=== PATIENT | female | born 1930 | race Caucasian/White ===

== ENCOUNTER → 2016-11-06 | Outpatient (CLI) | payer MEDICARE, BC ==
[~2016-11-06] MED LIST: ACCUPRIL PO; ACCURETIC 20-251 TAB; ACCURETIC 20-251 TAB PO; AMIODARONE HCL100 MG PO; AMIODARONE PO; AMLODIPINE BES2.5 MG PO; AMLODIPINE BESYL5 MG PO; ARTHROTEC 751 TAB.EC; ASPIRIN PO; ASPIRIN81 M2 PO; ASPIRIN81 MG PO; AZOR 5-40 MG1 UDTAB PO; AZOR 5/40 MG TA1 TAB PO; BACTRIM DS TABL1 TA1 PO; BACTROBAN22 GM TP; BAYER ASPIRIN325 M1 PO; BENEFIBER1 EAC1; BUSPAR15 M2 PO; BUSPAR15 MG PO; CALCIUM 500 +1 EAC5 PO; CHEWABLE ASPIRI81 MG PO; COUMADIN2.5 MG PO; COZAAR100 MG PO; DARVOCET-N 1001 TAB; DOC-Q-LACE100 MG PO; EQUATE; FUROSEMIDE40 MG PO; HYDRALAZINE HCL50 MG PO; HYDROCHLOROTH12.5 MG PO; ISOSORBIDE DINI10 MG PO; KLONOPIN1 MG; LASIX PO; LASIX20 MG PO; LISINOPRIL20 MG; LISINOPRIL20 MG PO; LOMOTIL 2.5-0.1 EACH; LORTAB 10/500 T1 TAB PO; METOPROLOL TAR25 MG PO; MULTI-VITAMIN1 TAB; MULTIVITAMIN; MULTIVITAMIN1 UDCAP PO; NEURONTIN100 MG PO; NITROGLYGERIN0.4 MG SL; NITROQUICK0.4 MG SL; NORVASC PO; NORVASC2.5 MG PO; OYSTER CALCIUM500 MG; PANTOPRAZOLE SO40 MG PO; PATIENT'S PHARMACY; PERCOCET 5/321 UDTAB PO; PLAVIX PO; PROLIA SUBQ; PROTONIX PO; QUINARETIC; SIMVASTATIN10 MG PO; SIMVASTATIN20 MG PO; TOPROL XL50 MG PO; TRICOR PO; TYLENOL; VICODIN 5/500 T1 TAB PO; VIT E; VITAMIN D 4001 UDTAB; VITAMIN D1000 UNIT PO; VITAMIN D3400 UNI2 PO; VITAMIN D3400 UNIT PO; VITAMIN D400 UNI1 PO; VITAMIN E; XARELTO15 MG PO; XARELTO20 MG PO; ZOCOR-BORROW, D10 MG PO; ZOCOR20 MG PO; ZOLOFT PO; [UNRECOGNIZED DRUG - OTHER]
[2016-11-06 09:40] LABS: INR 2.5; PROTHROMBIN TIME (PATIENT) 28.1 SECONDS (9.5-12.4)
== END | disposition home or self-care (01) ==
LOC: SLABONLY 08:13
PROVIDERS: Internal Medicine Cardiovascular Disease
DX: I48.91 Unspecified atrial fibrillation (principal)
CPT/HCPCS: 36415; 85610

== ENCOUNTER → 2016-12-05 | Outpatient (CLI) | payer MEDICARE, BC ==
[2016-12-05 10:59] LABS: INR 1.7; PROTHROMBIN TIME (PATIENT) 19.2 SECONDS (9.5-12.4)
== END | disposition home or self-care (01) ==
LOC: SLAB 08:42
PROVIDERS: Internal Medicine Cardiovascular Disease
DX: I48.91 Unspecified atrial fibrillation (principal)
CPT/HCPCS: 36415; 85610

== ENCOUNTER → 2016-12-08 | Day surgery (SDC) | payer MEDICARE, BC ==
--- NOTE | ~2016-12-08 | OR ---
Unit #: [id number] #: [id number] Patient: MEGAN BAILEY [id number] [address] [place], [place] [address] [id number] O MR#: [id number] NAME: MEGAN BAILEY ROOM: Date of Procedure: 12/08/2016 Admission Date: 12/08/2016 Surgeon: Domingo Maciel Jr., M.D. : 1930 Attending Physician: Domingo Maciel Jr., M.D. Primary Care Physician: Amisha Lombardo M.D. OPERATIVE REPORT JOB NOTE: CC: DR. LOMBARDO INDICATIONS FOR PROCEDURE The patient is an 86-year-old white female, who recently presented to the office complaining of loose stools with intermittent diarrhea, some weight loss, and chronic nausea with mid epigastric abdominal pain. It was felt that she needed both upper and lower endoscopy to rule out occult ulcer disease, possible esophagitis, possible colitis. She is brought in this time after prep at home for these procedures. She understands the procedure including the risks, including that of bleeding perforation, and consents. PREOPERATIVE DIAGNOSES Possible occult ulcer disease, possible esophagitis, possible colitis. POSTOPERATIVE DIAGNOSES On upper endoscopy, the patient was noted to have mild to moderate erosive gastritis especially in the area of the antrum. There was some tiny superficial ulcerations and mild duodenitis of the bulb of the duodenum and on colonoscopy to the distal ileum, she was noted to have diverticulosis of left colon, but no other specific abnormalities except for some tortuosity, which was noted on a previous scope. ANESTHESIA MAC anesthesia. PROCEDURES PERFORMED Flexible fiberoptic esophagogastroduodenoscopy with antral biopsy for Helicobacter pylori and flexible colonoscopy to the distal ileum. DESCRIPTION OF PROCEDURE The patient was positioned in Pozo position with left side down. After being given MAC anesthesia, the Olympus XQ scope was passed through the proximal esophagus. Entire esophagus was examined. There was no evidence of any esophagitis and no evidence of any stenosis. There was a small hiatal hernia present. The scope was passed through the GE junction and the cardia, and down to the fundic and antral region of the stomach and retroflexed back up to the area of the cardia, where there was a small hiatal hernia present. The stomach distended well without evidence of rigidity. Proximal two-thirds of the stomach appeared normal. In the area of the antrum, there were multiple small superficial ulcerations with yril-ap-yqihbqlr gastritis. A biopsy was taken from the antrum for H. Unit #: [id number] #: [id number] Patient: MEGAN BAILEY pylori without significant bleeding. The scope was advanced through the pylorus and the duodenal bulb, where there was some mild duodenitis. No evidence of any ulcers. The scope was advanced down to the second portion of the duodenum, which appeared normal. The scope was slowly removed. The patient repositioned for colonoscopy. A digital rectal examination was performed, which revealed no palpable mass or tenderness. No blood or stool in the rectal ampulla. The Olympus colonoscope was advanced through the anal canal up the rectum and retroflexed down to the area of the anorectal region. There were some small internal hemorrhoids felt to be of no major consequence with no evidence of any bleeding. The scope was then straightened and advanced up in the rectosigmoid, in the sigmoid and descending colon areas, where there was some tortuosity with diverticulosis. The scope was then advanced around the splenic flexure and the transverse colon, around the hepatic flexure and ascending colon, down in the area of the cecum. The light from the tip of the scope could be seen transilluminating through right lower quadrant abdominal wall area. The scope was advanced up the distal ileum approximately 10 to 12 inches. There was no evidence of any ileitis or inflammatory bowel disease. The scope was slowly removed. There were no tumors, no polyps, no cancer, no evidence of AVMs, no colitis, and no evidence of any acute diverticulitis. The caliber of the colon appeared normal throughout. The scope was removed. The patient tolerated the procedure well. The patient was discharged in satisfactory condition. Dictated by... Domingo Maciel Jr., Tam BECKHAM/price TD: 12/08/2016 23:18 JOB #: [id number] OPERATIVE REPORT Page 1 of 1 X Domingo Maciel MD X PROCEDURE OPERATIVE NOTE
== END | disposition home or self-care (01) ==
LOC: COPS 11:34
DX: K29.00 Acute gastritis without bleeding (principal); K29.80 Duodenitis without bleeding; K26.9 Duodenal ulcer, unspecified as acute or chronic, without hemorrhage or perforation; K57.30 Diverticulosis of large intestine without perforation or abscess without bleeding; K44.9 Diaphragmatic hernia without obstruction or gangrene; K64.8 Other hemorrhoids; I10 Essential (primary) hypertension; E78.5 Hyperlipidemia, unspecified; I25.10 Atherosclerotic heart disease of native coronary artery without angina pectoris; I48.91 Unspecified atrial fibrillation; Z85.3 Personal history of malignant neoplasm of breast; Z87.442 Personal history of urinary calculi; Z79.01 Long term (current) use of anticoagulants; Z79.82 Long term (current) use of aspirin; Z79.899 Other long term (current) drug therapy; Z90.49 Acquired absence of other specified parts of digestive tract; Z90.710 Acquired absence of both cervix and uterus; Z95.1 Presence of aortocoronary bypass graft
CPT/HCPCS: 87077

== ENCOUNTER → 2016-12-11 | Outpatient (CLI) | payer MEDICARE, BC ==
--- NOTE | ~2016-12-11 | CR63 ---
[facility] A Service of [facility] & [facility] RADIOLOGY TEXT RESULTS PATIENT: MEGAN BAILEY LOCATION: [facility] : 30 UNIT #: [id number] AGE: [address]: OSMAN CORBIN SEX: F ORDER DR: [id number] [facility] [address] [place], [place] [address] [id number] O MR#: [id number] Acc #: [id number] NAME: MEGAN BAILEY : 1930 SEX: F STUDY DATE/TIME: 12/11/2016 10:00 UNIT: [facility] ROOM: STUDY DESCRIPTION: CR Chest 2 View Attending Physician: Maxine Alcantara Referring Physician: Maxine Alcantara Ordering Physician: Maxine Alcantara Primary Care Physician: Amisha Jerry M.D. MEDICAL IMAGING REPORT This report is preliminary unless electronic signature is present EXAM PA and lateral chest radiograph 12/11/2016 INDICATIONS Right-sided chest pain for a couple of weeks. Patient has a history of right breast cancer status post mastectomy. FINDINGS Cardiomegaly is identified without any evidence of vascular congestion. Patient is status post right mastectomy and axillary dissection. No pneumothorax or pleural effusion is seen. There are background changes of COPD. 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 Patient has a stable compression deformity at T12 when compared to an exam from December 23, 2015. Old right-sided rib fractures are noted as well. IMPRESSION 1. Cardiomegaly without evidence of vascular congestion. 2. No acute infiltrates are identified. Patient does have background changes of COPD. 3. Changes of prior right mastectomy and axillary dissection. 4. Stable compression deformity at T12. Dictated by... Tavia Fregoso M.D. THIS IS AN ELECTRONICALLY VERIFIED REPORT Tavia Fregoso M.D. at 12/13/2016 7:55 AM RUSSELL/malik TD: 12/11/2016 15:16 JOB #: [id number] [facility] A Service of [facility] & [facility] RADIOLOGY TEXT RESULTS PATIENT: MEGAN BAILEY LOCATION: [facility] : 30 UNIT #: [id number] AGE: [address]: OSMAN CORBIN SEX: F ORDER DR: MEDICAL IMAGING REPORT Page 1 of 1 COPY
== END | disposition home or self-care (01) ==
LOC: CLAB 09:46
DX: R07.9 Chest pain, unspecified (principal); I51.7 Cardiomegaly; M43.9 Deforming dorsopathy, unspecified; Z90.11 Acquired absence of right breast and nipple; Z85.3 Personal history of malignant neoplasm of breast
CPT/HCPCS: 71020

== ENCOUNTER → 2016-12-26 | Outpatient (CLI) | payer MEDICARE, BC ==
[2016-12-26 11:23] LABS: BUN/CREATININE RATIO 23.57; CALCIUM SERUM 9.7 mg/dL (8.4-10.2); CREATININE SERUM 1.4 mg/dL (0.6-1.4); GLOM FILT RATE Estimated 33.9 mL/min (>60); POTASSIUM 3.3 mmol/L (3.5-5.1)
== END | disposition home or self-care (01) ==
LOC: SLAB 10:48
PROVIDERS: Internal Medicine Endocrinology, Diabetes & Metabolism
DX: E21.0 Primary hyperparathyroidism (principal)
CPT/HCPCS: 36415; 80048

== ENCOUNTER → 2017-01-05 | Outpatient (CLI) | payer MEDICARE, BC ==
[2017-01-05 13:40] LABS: INR 4.9
== END | disposition home or self-care (01) ==
LOC: SLABONLY 12:37
PROVIDERS: Internal Medicine Cardiovascular Disease
DX: I48.91 Unspecified atrial fibrillation (principal)
CPT/HCPCS: 36415; 85610

== ENCOUNTER → 2017-02-02 | Outpatient (CLI) | payer MEDICARE, BC ==
--- NOTE | ~2017-02-02 | MY27 ---
[facility] A Service of [facility] RADIOLOGY TEXT RESULTS PATIENT: MEGAN BAILEY LOCATION: [facility] : 30 UNIT #: [id number] AGE: [address]: Amisha Jerry MD SEX: F ORDER DR: [id number] [facility] [address] [place], [place] [address] [id number] O MR#: [id number] Acc #: [id number] NAME: MEGAN BAILEY : 1930 SEX: F STUDY DATE/TIME: 02/02/2017 10:46 UNIT: [facility] ROOM: STUDY DESCRIPTION: MY KENNETH SCREEN W/ CAD UNI LT Attending Physician: Amisha Jerry M.D. Referring Physician: Amisha Jerry M.D. Ordering Physician: Amisha Jerry M.D. Primary Care Physician: Amisha Jerry M.D. MEDICAL IMAGING REPORT This report is preliminary unless electronic signature is present EXAM Unilateral left digital screening mammogram, 02/02/2017 HISTORY 86-year-old woman status post right mastectomy age 70. Annual screening. COMPARISON Mammograms date to 11/16/2006 with most recent screening comparison 01/31/2016. FINDINGS Digital imaging of the left breast was completed utilizing screening protocol. Mole markers were placed. Review includes FDA-approved CAD device. Breast parenchyma is predominantly fatty replaced and stable. There is no interval occurring breast mass. There are no suspicious microcalcifications and no architectural deformity. IMPRESSION Negative unilateral left mammogram. Status post right mastectomy. Annual screening recommended. Patients over the age of 40 are entered into a reminder system with target due date for the next mammogram. A result letter will also be sent to the patient. BIRADS: 1 Negative Dictated by... Gene Giron M.D. THIS IS AN ELECTRONICALLY VERIFIED REPORT Gene Giron M.D. at 02/02/2017 3:06 PM NOEMI/shauna [facility] A Service of [facility] RADIOLOGY TEXT RESULTS PATIENT: MEGAN BAILEY LOCATION: [facility] : 30 UNIT #: [id number] AGE: [address]: Amisha Jerry MD SEX: F ORDER DR: TD: 02/02/2017 14:24 JOB #: [id number] MEDICAL IMAGING REPORT Page 1 of 1 COPY
== END | disposition home or self-care (01) ==
LOC: CWCC 10:30
DX: Z12.31 Encounter for screening mammogram for malignant neoplasm of breast (principal); Z90.11 Acquired absence of right breast and nipple
CPT/HCPCS: G0202

== ENCOUNTER → 2017-02-06 | Outpatient (CLI) | payer MEDICARE, BC ==
[2017-02-06 09:34] LABS: INR 2.1; PROTHROMBIN TIME (PATIENT) 24.2 SECONDS (9.5-12.4)
== END | disposition home or self-care (01) ==
LOC: SLABONLY 09:07
PROVIDERS: Internal Medicine Cardiovascular Disease
DX: Z51.81 Encounter for therapeutic drug level monitoring (principal); I48.91 Unspecified atrial fibrillation; Z79.01 Long term (current) use of anticoagulants
CPT/HCPCS: 36415; 85610

== ENCOUNTER → 2017-03-07 | Outpatient (CLI) | payer MEDICARE, BC ==
[2017-03-07 10:38] LABS: INR 2.7; PROTHROMBIN TIME (PATIENT) 30.9 SECONDS (9.5-12.4)
== END | disposition home or self-care (01) ==
LOC: SLAB 08:23
PROVIDERS: Internal Medicine Cardiovascular Disease
DX: I48.91 Unspecified atrial fibrillation (principal)
CPT/HCPCS: 36415; 85610

== ENCOUNTER → 2017-03-27 | Outpatient (CLI) | payer MEDICARE, BC ==
[2017-03-27 11:30] LABS: BUN/CREATININE RATIO 22.85; CALCIUM SERUM 9.9 mg/dL (8.4-10.2); CREATININE SERUM 1.4 mg/dL (0.6-1.4); GLOM FILT RATE Estimated 33.9 mL/min (>60); POTASSIUM 4.2 mmol/L (3.5-5.1)
[2017-03-31 00:41] LABS: CALCIUM (PTHINTACT) 10.4 mg/dL (8.6-10.4)
== END | disposition home or self-care (01) ==
LOC: SLABONLY 10:17
PROVIDERS: Internal Medicine Endocrinology, Diabetes & Metabolism
DX: M81.0 Age-related osteoporosis without current pathological fracture (principal); E21.0 Primary hyperparathyroidism
CPT/HCPCS: 36415; 80048; 82310; 83970

== ENCOUNTER → 2017-04-09 | Outpatient (CLI) | payer MEDICARE, BC ==
[2017-04-09 10:34] LABS: INR 2.6; PROTHROMBIN TIME (PATIENT) 29.2 SECONDS (9.5-12.4)
== END | disposition home or self-care (01) ==
LOC: SLAB 09:26
PROVIDERS: Internal Medicine Cardiovascular Disease
DX: Z51.81 Encounter for therapeutic drug level monitoring (principal); I48.91 Unspecified atrial fibrillation; Z79.01 Long term (current) use of anticoagulants
CPT/HCPCS: 36415; 85610

== ENCOUNTER → 2017-04-20 | Outpatient (CLI) | payer MEDICARE, BC | END | disposition home or self-care (01) | LOC: CSSDAY 09:58 | DX: M81.0 Age-related osteoporosis without current pathological fracture (principal) | CPT/HCPCS: 36415; 82310; 96372; J0897 ==

== ENCOUNTER → 2017-04-25 | Outpatient (CLI) | payer MEDICARE, BC ==
[2017-04-25 11:04] LABS: ALBUMIN SERUM 4.5 g/dL (3.5-5.0); BILIRUBIN,TOTAL 1.2 mg/dL (0.2-2.0); BUN/CREATININE RATIO 23.75; CALCIUM SERUM 9.6 mg/dL (8.4-10.2); CREATININE SERUM 1.6 mg/dL (0.6-1.4); GLOM FILT RATE Estimated 28.9 mL/min (>60); PHOSPHOROUS 2.9 mg/dL (2.5-4.6); POTASSIUM 3.7 mmol/L (3.5-5.1); PROTEIN TOTAL SERUM 6.8 g/dL (6.0-8.3); URIC ACID 8.6 mg/dL (2.6-7.2)
[2017-04-28 16:15] LABS: CALCIUM (PTHINTACT) 10.5 mg/dL (8.6-10.4)
== END | disposition home or self-care (01) ==
LOC: SLAB 09:09
PROVIDERS: Internal Medicine Nephrology
DX: N18.3 Chronic kidney disease, stage 3 (moderate) (principal); N25.81 Secondary hyperparathyroidism of renal origin
CPT/HCPCS: 36415; 80053; 82310; 83970; 84100; 84550